=== PATIENT | male | born 1960 | race Caucasian/White ===

== ENCOUNTER 2019-05-20 12:50 | Day surgery (SDC) | payer OTHER ==
[~2019-05-20] VITALS: Ht 175.3 cm; Wt 126.3 kg
[~2019-05-20 12:50] MED LIST: Lipitor20 MG PO; Naltrexone HCl50 MG PO; VITAMIN D-32000 UNIT PO
--- NOTE | 2019-05-20 13:51 | NUR ---
05/20/19 1351 Yared,February 05G MATILDE BLOCK IN RIGHT HAND PATIENT TOLERATED WELL
--- NOTE | 2019-05-20 16:02 | NUR ---
05/20/19 1602 Nhung Zarate PT VOIDED PRIOR TO DC HOME
== END 2019-05-20 15:50 | disposition home or self-care (01) ==
LOC: ORSCSDS 12:50
PROVIDERS: Orthopaedic Surgery
PROC: 01N50ZZ Release Median Nerve, Open Approach (ICD-10-PCS; principal; 2019-05-20 14:00)
DX: G56.02 Carpal tunnel syndrome, left upper limb (principal); N18.4 Chronic kidney disease, stage 4 (severe); E66.01 Morbid (severe) obesity due to excess calories; Z68.41 Body mass index [BMI] 40.0-44.9, adult; Z79.899 Other long term (current) drug therapy
CPT/HCPCS: J0690; J1100; J2001; J2250; J2405; J2704; J3010; J7120

== ENCOUNTER 2019-09-06 08:05 | Day surgery (SDC) | payer OTHER ==
[~2019-09-06] VITALS: Ht 175.3 cm; Wt 131.4 kg
[~2019-09-06 08:05] MED LIST changes: +AMLO10 PO; +LOSARTAN-HCTZ1 EACH PO; +METF500 PO; +POTCIT10 PO
--- NOTE | 2019-09-06 08:45 | NUR ---
Ambulatory in Day Surgery.PT APPEARS ANXIOUS. SOB AND SWEATY WITH AMBULATION. PT DENIES FEELING SOB AT REST. LUNGS CLEAR. SATS>90% ON RA.HISTORY AND ALLERGIES REVIEWED. NPO STATUS CONFIRMED. Patient reports completing Chlorhexadine shower X2 prior to admission to hospital.Surgical site prepped with 2% Chlorhexidine cloth wipe.NOSYN AND PERIDEX SOLUTION DONE PER MD ORDERS.
--- NOTE | 2019-09-06 17:41 | NUR ---
SHIFT SUMMARY PT HAS DONE WELL TODAY. INITIALLY STRUGGLED WITH PAIN MANAGEMENT BUT NOW TOLERABLE. ABLE TO PREFORM WITH THERAPY. TOLERATING DIET. VOIDING.
[2019-09-07 05:21] LABS: BASOPHILS ABSOLUTE AUTO 0.02 K/mm3 (0.00-0.23); BASOPHILS PERCENT AUTO 0 % (0-2); EOSINOPHILS PERCENT AUTO 0 % (0-6); Hematocrit 36.9 % (37.0-53.0); Hemoglobin 12.4 g/dL (13.5-17.5); IMMATURE GRAN ABSOLUTE AUTO 0.13 K/mm3 (0.00-0.10); IMMATURE GRAN PERCENT AUTO 1 % (0-1); LYMPHOCYTES ABSOLUTE AUTO 0.58 K/mm3 (0.84-5.20); LYMPHOCYTES PERCENT AUTO 3 % (21-46); MONOCYTES ABSOLUTE AUTO 1.07 K/mm3 (0.16-1.47); MONOCYTES PERCENT AUTO 5 % (4-13); Mean Corpuscular HGB 32.8 pg (26.0-34.0); Mean Corpuscular HGB Conc 33.6 g/dL (31.5-36.5); Mean Corpuscular Volume 98 fL (80-100); Mean Platelet Volume 9.9 fL (9.1-12.4); NEUTROPHILS ABSOLUTE AUTO 18.61 K/mm3 (1.96-9.15); NEUTROPHILS PERCENT AUTO 91 % (41-73); Platelet Count 192 K/mm3 (150-400); RDW Coefficient Variation 12.7 % (11.7-14.2); RDW Standard Deviation 45.6 fL (35.1-46.3); Red Blood Cell Count 3.78 M/mm3 (4.30-5.90); White Blood Cell Count 20.41 K/mm3 (4.00-11.30)
[2019-09-07 05:41] LABS: Bun/Creatinine Ratio 18.2 (12.0-20.0); Calcium, Blood 8.8 mg/dL (8.5-10.1); Creatinine, Blood 1.65 mg/dL (0.60-1.20)
--- NOTE | 2019-09-07 05:58 | NUR ---
SHIFT SUMMARY: XIOMARA IS POD1 FOR A LEFT TOTAL KNEE. HE IS A&OX4. HE IS TOLERATING PO INTAKE WELL. BLOOD SUGAR CONTROL WAS DISCUSSED HIGHLIGHTING THE IMPORTANCE OF WELL CONTROLLED SUGAR AND PREVENTING INFECTION. IV SALINE LOCKED. HE AMBULATED TO THE BATHROOM AND DOWN THE HALLWAY TWICE WITH GAIT BELT, FWW AND 1 PERSON STANDBY ASSIST. HE HAS BEEN ON ROOM AIR. HE IS ABLE TO MAKE HIS NEEDS KNOWN. HE IS VOIDING WITHOUT DIFFICULTIES. HE REPORTS THAT HIS PAIN IS TOLERABLE WITH THE ORAL PAIN MEDICATIONS. HE IS LYING IN BED WITH HIS CALL LIGHT IN REACH.
[2019-09-07] MEDS ORDERED: ASPI81CH PO (07:58)
[2019-09-07] MEDS ORDERED: Percocet 5-3251 EACH PO (07:59)
[2019-09-07] MEDS ORDERED: CELE100 PO (08:00)
--- NOTE | 2019-09-07 10:02 | NUR ---
DR. CALERO IN TO SEE PT AT 0800 TODAY. PT SHOWERED AFTER BREAKFAST AND IS CURRENTLY WORKING WITH THERAPY.
--- NOTE | 2019-09-07 11:50 | NUR ---
DISCHARGE NOTE PATIENT D/C HOME FROM UNIT VIA WHEELCHAIR AT 1100 TODAY. DISCHARGE INSTRUCTIONS, EXTRA DRESSINGS, POLAR PAC, SCRIPTS AND PERSONAL BELONGINGS PROVIDED TO PT/SISTER. CLEARED THERAPY THIS MORNING AND TOLERATED ACTIVITY WELL. REPORTS PAIN AT ACCEPTABLE LEVEL W/ PO MEDICATIONS. TOLERATING REGULAR DIET. DECLINED ANY CONCERNS AT TIME OF D/C, ENCOURAGED TO CALL IF ANY SHOULD ARISE.
== END 2019-09-07 11:17 | disposition home or self-care (01) ==
LOC: ORSCMMR 08:05 → ORD 09:45 → ORSCMMR 09:45 → ORD 10:30 → SURS 12:08 → ENPENDDIS 09-07 08:08 → ORSCMMR 09-07 11:17 → SURS 09-07 11:17
PROVIDERS: Orthopaedic Surgery
PROC: 0SRD0JA Replacement of Left Knee Joint with Synthetic Substitute, Uncemented, Open Approach (ICD-10-PCS; principal; 2019-09-06 09:45)
DX: M17.12 Unilateral primary osteoarthritis, left knee (principal); E11.22 Type 2 diabetes mellitus with diabetic chronic kidney disease; I12.9 Hypertensive chronic kidney disease with stage 1 through stage 4 chronic kidney disease, or unspecified chronic kidney disease; N18.3 Chronic kidney disease, stage 3 (moderate); Z79.84 Long term (current) use of oral hypoglycemic drugs; E66.01 Morbid (severe) obesity due to excess calories; Z68.41 Body mass index [BMI] 40.0-44.9, adult; Z79.899 Other long term (current) drug therapy
CPT/HCPCS: 36415; 73560-LT; 80048; 82947; 85025; 86850; 86900; 86901; 88300; 90686; 97110; 97116; 97162; 97530; C1776; J0171; J0690; J0735; J1100; J1170; J1885; J2250; J2370; J2405; J2704; J2795; J3010; J7120

== ENCOUNTER 2022-04-10 06:13 | Day surgery (SDC) | payer OTHER ==
[~2022-04-10] VITALS: Ht 172.7 cm; Wt 140.8 kg
[~2022-04-10 06:13] MED LIST changes: +ASPI81CH PO; +ATOR20 PO; +CELE100 PO; +HYDCHL25 PO; +LOSARTAN POTAS100 M1 PO; +Percocet 5-3251 EACH PO; +TRAZ50 PO
== END 2022-04-10 08:55 | disposition home or self-care (01) ==
LOC: ORSCSDS 06:13 → ORD 08:00 → ORSCMMR 08:00 → ORSCSDS 08:55
PROVIDERS: Internal Medicine Gastroenterology
PROC: 0DB98ZX Excision of Duodenum, Via Natural or Artificial Opening Endoscopic, Diagnostic (ICD-10-PCS; principal; 2022-04-10 08:00)
PROC: 0DB48ZX Excision of Esophagogastric Junction, Via Natural or Artificial Opening Endoscopic, Diagnostic (ICD-10-PCS; principal; 2022-04-10 08:00)
PROC: 0DB68ZX Excision of Stomach, Via Natural or Artificial Opening Endoscopic, Diagnostic (ICD-10-PCS; principal; 2022-04-10 08:00)
DX: E66.01 Morbid (severe) obesity due to excess calories (principal); Z01.818 Encounter for other preprocedural examination; E78.00 Pure hypercholesterolemia, unspecified; Z68.42 Body mass index [BMI] 45.0-49.9, adult; I10 Essential (primary) hypertension; Z79.899 Other long term (current) drug therapy
CPT/HCPCS: 88305; 88342; A9270; J2704; J7120

== ENCOUNTER → 2022-12-03 | Outpatient (CLI) | payer OTHER ==
[2022-12-03 14:04] LABS: U Amphetamine Screen Not Detected; U Barbituate Screen Not Detected; U Benzodiazapine Screen Not Detected; U Buprenorphine Screen Not Detected; U Cannabinoids Screen Not Detected; U Cocaine Screen Not Detected; U Methadone Screen Not Detected; U Methamphetamine Screen Not Detected; U Opiates Screen Not Detected; U Oxycodone Screen Not Detected; U Phencyclidine Screen Not Detected; U Propoxyphene Screen Not Detected
[2022-12-09 16:10] LABS: COTININE <10.0 ng/mL (.); NICOTINE <10.0 ng/mL (.)
== END | disposition home or self-care (01) ==
LOC: LAB SHORT 11:35 → LAB 11:35
PROVIDERS: Physician Assistant
DX: Z01.812 Encounter for preprocedural laboratory examination (principal)
CPT/HCPCS: G0480

== ENCOUNTER → 2024-05-05 | Outpatient (CLI) | payer OTHER ==
[2024-05-05 15:00] LABS: Percent Saturation 47.5 % (20.0-50.0)
== END ==
LOC: LAB 13:24 → LAB SHORT 13:24
PROVIDERS: Internal Medicine Hematology & Oncology
DX: R79.89 Other specified abnormal findings of blood chemistry (principal)
CPT/HCPCS: 82728; 83540; 83550

== ENCOUNTER → 2024-06-02 | Outpatient (CLI) | payer OTHER ==
[2024-06-02 14:53] LABS: Percent Saturation 37.2 % (20.0-50.0)
== END | disposition home or self-care (01) ==
LOC: LAB SHORT 13:06 → LAB 13:06
PROVIDERS: Internal Medicine Hematology & Oncology
DX: R79.89 Other specified abnormal findings of blood chemistry (principal)
CPT/HCPCS: 82728; 83540; 83550

== ENCOUNTER 2024-06-17 11:56 | Day surgery (SDC) | payer OTHER ==
[~2024-06-17] VITALS: Ht 175.3 cm; Wt 121.4 kg
[~2024-06-17 11:56] MED LIST changes: +Lactated Ringer's 1,000 ML IV ONE
[2024-06-17] MEDS ORDERED: Lactated Ringer's 1,000 ML IV ONE (13:20)
[2024-06-17] MEDS ORDERED: propofoL 50 ML IV ONE (13:24)
[2024-06-17] MEDS ORDERED: Lidocaine HCl 4% 5 ML SDA ONE (13:25)
--- NOTE | 2024-06-17 14:04 | NUR ---
06/17/24 1404 Bonilla Davis LATE ENTRY: GAVE LIDOCAINE 4% ISOLATED TOPICALIZATION OF THE THROAT PER DR. OSWALD'S ORDERS.
[2024-06-17 14:16] VITALS: BP 133/84
== END 2024-06-17 14:22 | disposition home or self-care (01) ==
LOC: ORSCSDS 11:56
PROVIDERS: Internal Medicine Gastroenterology
PROC: 0DJ08ZZ Inspection of Upper Intestinal Tract, Via Natural or Artificial Opening Endoscopic (ICD-10-PCS; principal; 2024-06-17 13:15)
DX: R10.13 Epigastric pain (principal); Z98.84 Bariatric surgery status; E78.5 Hyperlipidemia, unspecified; I12.9 Hypertensive chronic kidney disease with stage 1 through stage 4 chronic kidney disease, or unspecified chronic kidney disease; N18.9 Chronic kidney disease, unspecified; G47.33 Obstructive sleep apnea (adult) (pediatric); Z79.899 Other long term (current) drug therapy
CPT/HCPCS: J2001; J2704; J7120

== ENCOUNTER → 2024-09-21 | Outpatient (CLI) | payer OTHER ==
[~2024-09-21] MED LIST changes: +ACET500 PO; +KLOR-CON 1010 ME9 PO; -Lactated Ringer's 1,000 ML IV ONE; +VITAMIN D350 MC3 PO
[2024-09-22 14:28] LABS: Percent Saturation 51.6 % (20.0-50.0)
== END | disposition home or self-care (01) ==
LOC: LAB 12:52 → LAB SHORT 12:52
PROVIDERS: Internal Medicine Hematology & Oncology
DX: R79.89 Other specified abnormal findings of blood chemistry (principal)
CPT/HCPCS: 82728; 83540; 83550

== ENCOUNTER 2025-01-05 18:16 | Inpatient (IN) | payer OTHER ==
[~2025-01-05] VITALS: Ht 172.7 cm; Wt 123.4 kg
[2025-01-05] MEDS ORDERED: Ondansetron HCl 2 MG / ML 2ML Vial IV ONE (19:05)
[2025-01-05] MEDS ORDERED: NS 1,000 ML IV SCH ×2 (19:05→22:15)
[2025-01-05] MEDS ORDERED: Morphine Sulfate 4 MG/1 ML Injection IV ONE ×2 (19:20→21:10)
[2025-01-05 21:11] LABS: Source, Urine Clean Catch
[2025-01-05 21:23] LABS: BASOPHILS ABSOLUTE AUTO 0.03 K/mm3 (0.00-0.23); BASOPHILS PERCENT AUTO 0 % (0-2); EOSINOPHILS ABSOLUTE AUTO 0.03 K/mm3 (0.00-0.68); EOSINOPHILS PERCENT AUTO 0 % (0-6); Hemoglobin 14.8 g/dL (13.5-17.5); IMMATURE GRAN ABSOLUTE AUTO 0.08 K/mm3 (0.00-0.10); IMMATURE GRAN PERCENT AUTO 1 % (0-1); LYMPHOCYTES PERCENT AUTO 9 % (21-46); MONOCYTES ABSOLUTE AUTO 0.51 K/mm3 (0.16-1.47); MONOCYTES PERCENT AUTO 5 % (4-13); Mean Corpuscular HGB 33.9 pg (26.0-34.0); Mean Corpuscular Volume 92 fL (80-100); Mean Platelet Volume 12.3 fL (9.1-12.4); NEUTROPHILS ABSOLUTE AUTO 7.92 K/mm3 (1.96-9.15); NEUTROPHILS PERCENT AUTO 85 % (41-73); NRBC ABSOLUTE 0.03 K/mm3 (0.00-0.02); NRBC Auto 0.3 /100 WBC (0.0-0.2); RDW Coefficient Variation 14.1 % (11.7-14.2); RDW Standard Deviation 47.4 fL (35.1-46.3); Red Blood Cell Count 4.36 M/mm3 (4.30-5.90)
[2025-01-05 21:28] LABS: Appearance, Urine Clear (Clear); Bilirubin, Urine Neg (Neg); Blood, Urine 1+ (Neg); Color, Urine Yellow (P-Yellow); Glucose Qualitative, Urine Neg (Neg); Ketones, Urine Neg (Neg); Leukocyte Esterase, Urine Neg (Neg); Nitrite, Urine Neg (Neg); Protein, Urine 2+ (Neg); Specific Gravity, Urine 1.015 (1.003-1.022); Urobilinogen, Urine NORM (Normal)
[2025-01-05 21:31] LABS: Platelet Count 90 K/mm3 (150-400); White Blood Cell Count 9.52 K/mm3 (4.00-11.30)
[2025-01-05 22:15] LABS: Bacteria Few /hpf; Hyaline Casts 0-2 /lpf (0-2); Red Blood Cells, Urine 0-2 /hpf (0-2); Squamous Epithelial Cells Few /hpf (Few); White Blood Cells, Urine 0-2 /hpf (0-5)
[2025-01-05] MEDS ORDERED: LORazepam 2 MG/ML 1ML Injection IV PRN (22:15)
[2025-01-05] MEDS ORDERED: ChlordiazePOXIDE 25 MG Cap PO PRN (22:15)
[2025-01-05] MEDS ORDERED: Ondansetron HCl 2 MG / ML 2ML Vial IV PRN (22:15)
[2025-01-05] MEDS ORDERED: FLU VACC TS2024-25(6MOS UP)/PF 45 MCG/0.5 ML SYRINGE IM ONE (22:20)
[2025-01-05] MEDS ORDERED: FentaNYL Citrate 50 MCG/ML 2 ML Injection IV PRN (22:20)
[2025-01-05] MEDS ORDERED: Thiamine HCl 100 MG in NS 50 ML IV SCH (22:38)
[2025-01-05] MEDS ORDERED: Enoxaparin 40 MG/0.4 ML SYR SC SCH (23:00)
[2025-01-06] VITALS (30 sets, daily range): BP systolic 103–153; BP diastolic 54–98
[2025-01-06 02:22] LABS: Anion Gap Unable to Calculate mmol/L (3-11)
[2025-01-06 02:23] LABS: Sodium, Blood 135 mmol/L (136-145)
[2025-01-06 02:24] LABS: Chloride, Blood 105 mmol/L (98-108)
[2025-01-06 02:25] LABS: Blood Urea Nitrogen 20 mg/dL (8-24); CO2, Blood 25 mmol/L (21-32); Glucose, Blood 95 mg/dL (70-99)
[2025-01-06 02:26] LABS: Bun/Creatinine Ratio 15.5 (12.0-20.0); Creatinine, Blood 1.29 mg/dL (0.60-1.20); Glomerular Filtration Rate 62 (60-)
[2025-01-06 02:27] LABS: Albumin, Blood 2.1 g/dL (3.4-5.0); Total Protein, Blood 6.5 g/dL (6.4-8.2)
[2025-01-06 02:28] LABS: Albumin/Globulin Ratio 0.5 (0.8-1.8); Alk Phos 139 U/L (50-136); Bilirubin, Total 0.6 mg/dL (0.1-1.0); Globulin, Blood 4.4 g/dL (2.2-4.0)
[2025-01-06 02:29] LABS: Alanine Aminotransfer (ALT/SGP 145 U/L (12-78); Aspartate Aminotrans (AST/SGOT 297 U/L (12-37)
[2025-01-06] MEDS ORDERED: Gemfibrozil 600 MG Tab PO SCH (03:00)
[2025-01-06] MEDS ORDERED: Fenofibrate, Micronized 134 MG Capsule PO SCH (03:00)
[2025-01-06] MEDS ORDERED: FentaNYL Citrate 50 MCG/ML 2 ML Injection IV PRN ×2 (03:30→05:25)
[2025-01-06 06:31] LABS: BASOPHILS ABSOLUTE AUTO 0.03 K/mm3 (0.00-0.23); BASOPHILS PERCENT AUTO 0 % (0-2); EOSINOPHILS ABSOLUTE AUTO 0.01 K/mm3 (0.00-0.68); EOSINOPHILS PERCENT AUTO 0 % (0-6); Hemoglobin 14.9 g/dL (13.5-17.5); IMMATURE GRAN ABSOLUTE AUTO 0.12 K/mm3 (0.00-0.10); IMMATURE GRAN PERCENT AUTO 1 % (0-1); LYMPHOCYTES ABSOLUTE AUTO 0.87 K/mm3 (0.84-5.20); LYMPHOCYTES PERCENT AUTO 6 % (21-46); MONOCYTES ABSOLUTE AUTO 0.67 K/mm3 (0.16-1.47); MONOCYTES PERCENT AUTO 5 % (4-13); Mean Corpuscular HGB 32.7 pg (26.0-34.0); Mean Corpuscular HGB Conc 35.5 g/dL (31.5-36.5); Mean Corpuscular Volume 92 fL (80-100); NEUTROPHILS ABSOLUTE AUTO 11.99 K/mm3 (1.96-9.15); NEUTROPHILS PERCENT AUTO 88 % (41-73); RDW Coefficient Variation 14.5 % (11.7-14.2); RDW Standard Deviation 48.9 fL (35.1-46.3); Red Blood Cell Count 4.55 M/mm3 (4.30-5.90)
[2025-01-06 06:33] LABS: Mean Platelet Volume 11.4 fL (9.1-12.4); Platelet Count 77 K/mm3 (150-400)
[2025-01-06 06:34] LABS: White Blood Cell Count 12.83 K/mm3 (4.00-11.30)
[2025-01-06 07:17] LABS: Alk Phos 140 U/L (50-136); Anion Gap 16 mmol/L (3-11); Bilirubin, Total 2.1 mg/dL (0.1-1.0); CO2, Blood 22 mmol/L (21-32); Chloride, Blood 101 mmol/L (98-108); Creatinine, Blood 0.62 mg/dL (0.60-1.20); Glomerular Filtration Rate 107 (60-); Glucose, Blood 157 mg/dL (70-99); LDL/HDL RATIO Unable to Calculate; Low Density Lipoprotein Chol Unable to Calculate mg/dL (0-110); Potassium, Blood 5.7 mmol/L (3.5-5.5); Sodium, Blood 133 mmol/L (136-145); Very Low Density Lipoprot Chol Unable to Calculate mg/dL (6-32)
[2025-01-06 07:19] LABS: Albumin/Globulin Ratio Unable to Calculate (0.8-1.8); Bun/Creatinine Ratio Unable to Calculate (12.0-20.0); Globulin, Blood Unable to Calculate g/dL (2.2-4.0)
[2025-01-06 07:21] LABS: CHOL/HDL RATIO Unable to Calculate; Cholesterol 286 mg/dL (50-200); Triglycerides 3145 mg/dL (30-160)
[2025-01-06] MEDS ORDERED: NS 1,000 ML IV SCH ×2 (08:10→13:35)
[2025-01-06] MEDS ORDERED: Dextrose 5% 1,000 ML IV SCH ×2 (09:00→11:03)
[2025-01-06] MEDS ORDERED: Insulin Human Regular 100 UNIT in NS 100 ML IV SCH (09:10)
--- NOTE | 2025-01-06 10:32 | NUR ---
PT HAD NAUSEA AND C/O ABD PAIN, SEE EMAR FOR PRN MEDICATIONS GIVEN AND FREQUENCY. PT WAS TRANSFERED TO ICU FOR HYPOGLYCEMIC PROTOCOL. REPORT GIVEN. PT HAS NO QUESTIONS AT THAT TIME
[2025-01-06] MEDS ORDERED: METOPROLOL SUCC25 MG PO (11:37)
--- NOTE | 2025-01-06 11:43 | NUR ---
ASSUMED CARE PT TRANSFERRED TO ICU 1, ESCORTED BY MED FLOOR RN. ALERT AND ORIENTED X 4. PT AMBULATES TO ICU BED c SBA. REPORTS PAIN AT 10/10 IN HIS ABDOMEN. CONTINUOUS CARDIAC MONITORING IN PLACE SHOWS SR, BP STABLE. ON RA c O2 SATURATION > 92%. PIV TO LAC SALINE LOCKED. SEE SHIFT ASSESSMENT FOR FULL DETAILS.
[2025-01-06] MEDS ORDERED: Ondansetron HCl 2 MG / ML 2ML Vial IV PRN (12:05)
[2025-01-06] MEDS ORDERED: HYDROmorphone HCl/Pf 1MG SYR IV PRN (12:05)
[2025-01-06] MEDS ORDERED: Metoprolol Succinate 25 MG TABCR PO SCH (13:00)
[2025-01-06] MEDS ORDERED: HYDROmorphone HCl/Pf 1MG SYR IV ONE (14:20)
[2025-01-06 15:02] LABS: Albumin, Blood 2.2 g/dL (3.4-5.0); Albumin/Globulin Ratio 0.6 (0.8-1.8); Bilirubin, Total 2.7 mg/dL (0.1-1.0); Bun/Creatinine Ratio 12.3 (12.0-20.0); Calcium, Blood 6.8 mg/dL (8.5-10.1); Creatinine, Blood 1.06 mg/dL (0.60-1.20); Globulin, Blood 3.6 g/dL (2.2-4.0); Potassium, Blood 3.3 mmol/L (3.5-5.5); Total Protein, Blood 5.8 g/dL (6.4-8.2)
[2025-01-06] MEDS ORDERED: Potassium Chl 20MEQ/Water100ML 100 ML IV SCH (15:45)
[2025-01-06] MEDS ORDERED: Potassium Chloride 20 MEQ TabCR PO ONE (16:00)
--- NOTE | 2025-01-06 17:06 | NUR ---
SHIFT SUMMARY PT REMAINED ALERT AND ORIENTED X 4 T/O ENTIRETY OF SHIFT. ABLE TO FOLLOW COMMANDS, MAKE PURPOSEFUL MOVEMENTS, AND MAKE NEEDS KNOWN. AFEBRILE. REPORTED PAIN IN HIS ABDOMEN. MEDICATED PER EMAR c GOOD BENEFIT. CIWA SCORE OF 4 THIS SHIFT. CONTINUOUS CARDIAC MONITORING IN PLACE SHOWS SR-ST c HR IN 80'S-100'S, OCCASIONALLY UP TO 140'S. HOME METOPROLOL RESUMED THIS SHIFT. BP STABLE c MAP > 65. ON 4 LPM O2 VIA NC c SATURATION IN 90'S. NO BM THIS SHIFT. NPO. ONE EPISODE OF EMESIS THIS SHIFT. MEDICATED PER EMAR c GOOD BENEFIT. TOLERATING PO MEDS WELL. UTILIZES BEDSIDE URINAL. PG TO WALDEMAR INFUSING INSULIN AT 2.5 U/HR, D5 AT 175mL/HR, AND KCL REPLACEMENT INFUSION. PIV TO LAC SALINE LOCKED. REPEAT LABS ORDERED FOR 1800. WILL CONTINUE TO MONITOR AND REPORT TO ONCOMING RN.
[2025-01-06 18:39] LABS: Alanine Aminotransfer (ALT/SGP 120 U/L (12-78); Albumin, Blood 2.1 g/dL (3.4-5.0); Albumin/Globulin Ratio 0.6 (0.8-1.8); Alk Phos 117 U/L (50-136); Anion Gap 12 mmol/L (3-11); Bilirubin, Total 2.8 mg/dL (0.1-1.0); Blood Urea Nitrogen 13 mg/dL (8-24); Bun/Creatinine Ratio 12.9 (12.0-20.0); CO2, Blood 23 mmol/L (21-32); Calcium, Blood 6.2 mg/dL (8.5-10.1); Chloride, Blood 106 mmol/L (98-108); Creatinine, Blood 1.01 mg/dL (0.60-1.20); Globulin, Blood 3.7 g/dL (2.2-4.0); Glomerular Filtration Rate 84 (60-); Glucose, Blood 119 mg/dL (70-99); Sodium, Blood 137 mmol/L (136-145); Total Protein, Blood 5.8 g/dL (6.4-8.2)
[2025-01-06 18:41] LABS: Aspartate Aminotrans (AST/SGOT 162 U/L (12-37); Potassium, Blood 3.6 mmol/L (3.5-5.5); Triglycerides 1558 mg/dL (30-160)
--- NOTE | 2025-01-06 18:45 | NUR ---
PM LABS CALL TO DR. MERA REGARDING LABS. PER DR. MERA, PT TO REMAIN ON INSULIN DRIP UNTIL TRIGLYCERIDES ARE BELOW 500. NEW REPEAT LABS ORDERED.
[2025-01-06 22:24] LABS: Albumin, Blood 2.1 g/dL (3.4-5.0); Albumin/Globulin Ratio 0.5 (0.8-1.8); Bilirubin, Total 3.2 mg/dL (0.1-1.0); Bun/Creatinine Ratio 13.5 (12.0-20.0); Calcium, Blood 6.4 mg/dL (8.5-10.1); Creatinine, Blood 1.04 mg/dL (0.60-1.20); Globulin, Blood 3.9 g/dL (2.2-4.0); Potassium, Blood 4.2 mmol/L (3.5-5.5)
[2025-01-07] VITALS (19 sets, daily range): BP systolic 101–148; BP diastolic 50–101
[2025-01-07 02:20] LABS: BASOPHILS ABSOLUTE AUTO 0.02 K/mm3 (0.00-0.23); BASOPHILS PERCENT AUTO 0 % (0-2); EOSINOPHILS ABSOLUTE AUTO 0.02 K/mm3 (0.00-0.68); EOSINOPHILS PERCENT AUTO 0 % (0-6); Hematocrit 36.7 % (37.0-53.0); Hemoglobin 12.9 g/dL (13.5-17.5); IMMATURE GRAN ABSOLUTE AUTO 0.09 K/mm3 (0.00-0.10); IMMATURE GRAN PERCENT AUTO 1 % (0-1); LYMPHOCYTES ABSOLUTE AUTO 0.69 K/mm3 (0.84-5.20); LYMPHOCYTES PERCENT AUTO 4 % (21-46); MONOCYTES ABSOLUTE AUTO 0.66 K/mm3 (0.16-1.47); MONOCYTES PERCENT AUTO 4 % (4-13); Mean Corpuscular HGB 33.9 pg (26.0-34.0); Mean Corpuscular HGB Conc 35.1 g/dL (31.5-36.5); Mean Corpuscular Volume 96 fL (80-100); Mean Platelet Volume 10.6 fL (9.1-12.4); NEUTROPHILS ABSOLUTE AUTO 14.99 K/mm3 (1.96-9.15); NEUTROPHILS PERCENT AUTO 91 % (41-73); RDW Coefficient Variation 14.4 % (11.7-14.2); Red Blood Cell Count 3.81 M/mm3 (4.30-5.90); White Blood Cell Count 16.47 K/mm3 (4.00-11.30)
[2025-01-07 02:25] LABS: Platelet Count 44 K/mm3 (150-400)
[2025-01-07 02:53] LABS: Alanine Aminotransfer (ALT/SGP 86 U/L (12-78); Albumin, Blood 2.1 g/dL (3.4-5.0); Albumin/Globulin Ratio 0.6 (0.8-1.8); Alk Phos 109 U/L (50-136); Anion Gap 9 mmol/L (3-11); Aspartate Aminotrans (AST/SGOT 125 U/L (12-37); Bilirubin, Total 2.8 mg/dL (0.1-1.0); Blood Urea Nitrogen 12 mg/dL (8-24); Bun/Creatinine Ratio 11.5 (12.0-20.0); CO2, Blood 23 mmol/L (21-32); Calcium, Blood 6.2 mg/dL (8.5-10.1); Chloride, Blood 109 mmol/L (98-108); Creatinine, Blood 1.04 mg/dL (0.60-1.20); Globulin, Blood 3.4 g/dL (2.2-4.0); Glomerular Filtration Rate 81 (60-); Glucose, Blood 114 mg/dL (70-99); Magnesium, Blood 1.1 mg/dL (1.6-2.4); Phosphorus, Blood 0.8 mg/dL (2.5-4.9); Potassium, Blood 3.3 mmol/L (3.5-5.5); Sodium, Blood 138 mmol/L (136-145); Total Protein, Blood 5.5 g/dL (6.4-8.2); Triglycerides 500 mg/dL (30-160)
[2025-01-07] MEDS ORDERED: Potassium Phosphate Dibasic 30 MM in Dextrose 5% 500 ML IV ONE (03:05)
[2025-01-07] MEDS ORDERED: CALCIUM GLUC IN NACL, ISO-OSM 50 ML IV ONE (03:05)
[2025-01-07] MEDS ORDERED: Magnesium Sulf 2 GM/Water 50ML 50 ML IV ONE (03:45)
--- NOTE | 2025-01-07 06:25 | NUR ---
SHIFT SUMMARY PATIENT SLEPT OFF AND ON THROUGH SHIFT. USES CALL LIGHT TO MAKE NEEDS KNOW. A&O X4 DOES REPEAT QUESTIONS. SBP 110-120'S AND HR IN THE 80-90'S. ON 4L OF OXYGEN VIA NC. PATIENT IS TOLERATING ICE CHIPS BUT NOT DRINKING WATER CAUSES NAUSEA. AGVE PAIN MEDS AND NAUSEA MED PER EMAR. INSULIN DRIP RUNNING @2, D5 RUNNING @ 175MLS, AND K PHOS RUNNING @100MLS. PATIENT HAS RIGHT POWERGLIDE IN WALDEMAR AND LEFT 20G AC. PATIENT USES URINAL AT BEDSIDE AND USES BEDSIDE COMMODE AND NO BM ON SHIFT. PATIENT PASSING A LOT OF GAS AND STATES THAT IS NORMAL FOR HIM. CALL LIGHT WITHIN REACH.
[2025-01-07 06:30] LABS: Anion Gap 6 mmol/L (3-11); Blood Urea Nitrogen 12 mg/dL (8-24); Bun/Creatinine Ratio 11.4 (12.0-20.0); CO2, Blood 27 mmol/L (21-32); Calcium, Blood 6.3 mg/dL (8.5-10.1); Chloride, Blood 104 mmol/L (98-108); Creatinine, Blood 1.05 mg/dL (0.60-1.20); Glomerular Filtration Rate 80 (60-); Glucose, Blood 136 mg/dL (70-99); Potassium, Blood 3.2 mmol/L (3.5-5.5); Sodium, Blood 134 mmol/L (136-145); Triglycerides 366 mg/dL (30-160)
--- NOTE | 2025-01-07 07:00 | NUR ---
ASSUME CARE: I have assumed care of this patient. He is alert and oriented at this time.
[2025-01-07] MEDS ORDERED: NS 1,000 ML IV SCH (08:10)
[2025-01-07] MEDS ORDERED: Potassium Chloride 40 MEQ in NS 250 ML IV ONE (09:00)
[2025-01-07 12:41] LABS: Bun/Creatinine Ratio 10.7 (12.0-20.0); Calcium, Blood 6.5 mg/dL (8.5-10.1); Creatinine, Blood 1.12 mg/dL (0.60-1.20); Potassium, Blood 3.3 mmol/L (3.5-5.5)
[2025-01-07] MEDS ORDERED: Magnesium Sulf 2 GM/Water 50ML 50 ML IV STA (13:55)
[2025-01-07] MEDS ORDERED: Potassium Chl 20MEQ/Water100ML 100 ML IV SCH (14:00)
--- NOTE | 2025-01-07 15:09 | NUR ---
TRANSFER: Pt transferred from ICU 1 to Medical 326 via wheelchair by OBSTETRICAL TECH and RN. Report was given to medical floor Esmer MUSTAFA. Pt alert and oriented upon transfer. He transferred from bed to chair with minimal assistance.
[2025-01-07 17:37] LABS: Magnesium, Blood 1.6 mg/dL (1.6-2.4); Phosphorus, Blood 1.1 mg/dL (2.5-4.9)
--- NOTE | 2025-01-07 17:50 | NUR ---
SHIFT SUMMARY PT TRANSFERED FROM ICU 1 TO ROOM 326 THIS SHIFT. PT NOTED TO BE A&O X4 AND CALLS APPROPRIATE. PT NOTED TO BE IND IN ROOM. PT NOTED TO BE RECEIVEING SUPPLEMENTAL POTASSIUM AND MAG ON ARRIVAL. PT HAS BEEN MEDICATED FOR PAIN X1 THIS SHIFT SINCE ARRIVING. PT NOTED TO CONT TO REMAIN NPO AND GLUCOSE BEING CHECKED Q6HRS.
[2025-01-07] MEDS ORDERED: Potassium Phosphate Dibasic 20 MM in NS 500 ML IV STA (19:04)
[2025-01-08 00:06] VITALS: BP 117/68
[2025-01-08 00:24] LABS: Bun/Creatinine Ratio 11.3 (12.0-20.0); Calcium, Blood 6.2 mg/dL (8.5-10.1); Creatinine, Blood 1.06 mg/dL (0.60-1.20); Phosphorus, Blood 1.7 mg/dL (2.5-4.9); Potassium, Blood 3.8 mmol/L (3.5-5.5)
[2025-01-08 03:18] VITALS: BP 139/87
[2025-01-08] MEDS ORDERED: Metoprolol Tartrate 1 MG/ML 5 ML VIAL IV ONE (04:55)
[2025-01-08 05:37] LABS: BASOPHILS ABSOLUTE AUTO 0.02 K/mm3 (0.00-0.23); BASOPHILS PERCENT AUTO 0 % (0-2); EOSINOPHILS ABSOLUTE AUTO 0.07 K/mm3 (0.00-0.68); EOSINOPHILS PERCENT AUTO 1 % (0-6); Hematocrit 33.4 % (37.0-53.0); Hemoglobin 11.5 g/dL (13.5-17.5); IMMATURE GRAN ABSOLUTE AUTO 0.05 K/mm3 (0.00-0.10); IMMATURE GRAN PERCENT AUTO 1 % (0-1); LYMPHOCYTES ABSOLUTE AUTO 0.44 K/mm3 (0.84-5.20); LYMPHOCYTES PERCENT AUTO 4 % (21-46); MONOCYTES ABSOLUTE AUTO 0.52 K/mm3 (0.16-1.47); MONOCYTES PERCENT AUTO 5 % (4-13); Mean Corpuscular HGB 33.8 pg (26.0-34.0); Mean Corpuscular HGB Conc 34.4 g/dL (31.5-36.5); Mean Corpuscular Volume 98 fL (80-100); Mean Platelet Volume 11.3 fL (9.1-12.4); NEUTROPHILS ABSOLUTE AUTO 9.91 K/mm3 (1.96-9.15); NEUTROPHILS PERCENT AUTO 90 % (41-73); RDW Coefficient Variation 15.6 % (11.7-14.2); RDW Standard Deviation 56.2 fL (35.1-46.3); White Blood Cell Count 11.01 K/mm3 (4.00-11.30)
[2025-01-08 05:39] LABS: Platelet Count 30 K/mm3 (150-400)
[2025-01-08 06:05] LABS: Albumin, Blood 2.1 g/dL (3.4-5.0); Albumin/Globulin Ratio 0.6 (0.8-1.8); Bilirubin, Total 3.3 mg/dL (0.1-1.0); Bun/Creatinine Ratio 10.9 (12.0-20.0); Calcium, Blood 6.1 mg/dL (8.5-10.1); Creatinine, Blood 1.01 mg/dL (0.60-1.20); Globulin, Blood 3.7 g/dL (2.2-4.0); Potassium, Blood 3.6 mmol/L (3.5-5.5); Total Protein, Blood 5.8 g/dL (6.4-8.2)
[2025-01-08 06:20] VITALS: BP 136/84
[2025-01-08] MEDS ORDERED: Diltiazem HCl 5 MG / ML 5ML Vial IV ONE (06:30)
--- NOTE | 2025-01-08 07:28 | NUR ---
SHIFT SUMMARY PT A&OX4. ANXIOUS AMD RESTLESS DURING THE NIGHT. PT STATED HE WANTED TO GO HOME TO TAKE CARE OF A FEW THINGS AND COME BACK. PT ALSO VERY CONCERNED ABOUT GETTING CLEAN CLOTHING FROM HOME. PT REPEATEDLY ASKED ABOUT WHEN HE WOULD GO HOME, WHEN THE DR WOULD BE IN, AND QUESTIONS ABOUT CAUSE OF ELECTROLYTE IMBALNCE AND WHAT MEDICATION WHERE GIVEN TO HIM ON MEDICAL AND ICU FLOOR. THIS NURSE ATTEMPTED TO ANSWER QUESTIONS ABLE. ATIVAN GIVEN PER EMAR. PT DECLINED LIBRIUM D/T CONCERN ABOUT IT MAKING HIM TOO SLEEPING. Q4 CIWA'S RANGED FROM 1-7. PT'S HR CONVERTED TO A-FIB WITH HR UP TO 150's. DR CALLED AND ORDER GIVEN FOR LOPRESSOR. HR CONTINUED TO REMAIN ELEVATED UP TO THE 160'S. ORDER GIVEN FOR CARDIZEM BUT PT CONVERTED BACK TO SR IN THE 110'S SO MEDICATION NOT GIVEN. IV K PHOS GIVEN PER EMAR. NS INFUSING @ 150ml/hr. PT TOLERATING CL LIQUID DIET. BED IN LOWEST POSITION AND CALL LIGHT IN REACH. REPORT GIVEN TO ONCOMING NURSE.
[2025-01-08 08:11] VITALS: BP 126/80
[2025-01-08] MEDS ORDERED: Potassium Phos/Sodium Phos 250 MG PACK PO ONE (09:50)
[2025-01-08 15:23] VITALS: BP 128/94
[2025-01-08] MEDS ORDERED: NS 1,000 ML IV SCH (15:35)
[2025-01-08] MEDS ORDERED: Melatonin 5 MG Tablet PO PRN (17:30)
--- NOTE | 2025-01-08 17:46 | NUR ---
SHIFT SUMMARY PT CONT LEVEL OF CARE. PT NOTED TO BE VERY AGITATED THIS SHIFT. PT WAS OFFERED LIBRUM AND ATIVAN BUT REFUSED. PHYSICIAN ALSO DISCUSSED USE OF CPAP BUT PT CONT TO REFUSE TO USE. PT NOTED TO ADVANCED TO A FULL LIQUID DIET THIS SHIFT AND TOLERATED WELL FOR SUPPER. PT HAS DENIED PAIN THIS SHIFT. PT DID VOICE CONCERN OF NOT SLEEPING WELL PHYSICAIN NOTIFIED AND ORDER FOR MELATONIN RECEIVED.
[2025-01-08 19:31] VITALS: BP 125/68
[2025-01-09] VITALS (7 sets, daily range): BP systolic 110–150; BP diastolic 69–99
--- NOTE | 2025-01-09 04:19 | NUR ---
SLAB INSPECTOR SUMMARY BP ELEVATED, OTHERWISE VSS. ALERT AND ORIENTED, INITALLY WAS ANXIOUS SHIFT STARTED, BUT WITH STAFF INTERRACTIONS AND VERBAL SUPPORT TO PT, PT BECAME LESS ANXIOUS AND PLEASANT, EVEN THANKING STAFF FOR THEIR ASSISTANCE. UP WITH OBSERVATION AND OCCASIONALLY WALKER TO BATHROOM. WAS INCONT OF BM AND URINE X 1. IVF OF NS AND IV ANTIBIOTICS INFUSING ORDERED. REQUESTED AND RECEIVED DILAUDID FOR PAIN. MED EFFECTIVE. AWAKENED ABOUT EVERY 4 HRS FOR VS HE IS ON TELE. SINUS IN THE LOW HUNDREDS. HAS BEEN RESTING QUIETLY OTHERWISE. O2 PER MASK. HOB ELEVATED. CALL LIGHT IN REACH, RAILS UP X 2 AND BED IN LOW POSITION FOR SAFETY. CURRENTLY RESTING QUIETLY. CIWAS Q 4 HRS - 0 TO 2 NOTED. WILL CONTINUE TO MONITOR
[2025-01-09 05:53] LABS: BASOPHILS ABSOLUTE AUTO 0.03 K/mm3 (0.00-0.23); BASOPHILS PERCENT AUTO 0 % (0-2); EOSINOPHILS PERCENT AUTO 1 % (0-6); Hematocrit 31.3 % (37.0-53.0); Hemoglobin 10.5 g/dL (13.5-17.5); IMMATURE GRAN ABSOLUTE AUTO 0.05 K/mm3 (0.00-0.10); IMMATURE GRAN PERCENT AUTO 1 % (0-1); LYMPHOCYTES ABSOLUTE AUTO 0.65 K/mm3 (0.84-5.20); LYMPHOCYTES PERCENT AUTO 6 % (21-46); MONOCYTES ABSOLUTE AUTO 0.65 K/mm3 (0.16-1.47); MONOCYTES PERCENT AUTO 6 % (4-13); Mean Corpuscular HGB 33.3 pg (26.0-34.0); Mean Corpuscular HGB Conc 33.5 g/dL (31.5-36.5); Mean Corpuscular Volume 99 fL (80-100); Mean Platelet Volume 11.8 fL (9.1-12.4); NEUTROPHILS PERCENT AUTO 86 % (41-73); RDW Coefficient Variation 15.9 % (11.7-14.2); RDW Standard Deviation 57.8 fL (35.1-46.3); Red Blood Cell Count 3.15 M/mm3 (4.30-5.90); White Blood Cell Count 10.48 K/mm3 (4.00-11.30)
[2025-01-09 06:12] LABS: Platelet Count 38 K/mm3 (150-400)
[2025-01-09 06:27] LABS: Albumin, Blood 1.8 g/dL (3.4-5.0); Albumin/Globulin Ratio 0.5 (0.8-1.8); Bilirubin, Total 3.4 mg/dL (0.1-1.0); Bun/Creatinine Ratio 7.7 (12.0-20.0); Calcium, Blood 6.3 mg/dL (8.5-10.1); Creatinine, Blood 0.9 mg/dL (0.60-1.20); Globulin, Blood 3.9 g/dL (2.2-4.0); Phosphorus, Blood 0.7 mg/dL (2.5-4.9); Potassium, Blood 3.2 mmol/L (3.5-5.5); Total Protein, Blood 5.7 g/dL (6.4-8.2)
[2025-01-09] MEDS ORDERED: Potassium Phosphate Dibasic 30 MM IV ONE (06:40)
[2025-01-09] MEDS ORDERED: Potassium Phosphate Dibasic 30 MM in Dextrose 5% 500 ML IV STA (06:47)
[2025-01-09] MEDS ORDERED: TPN Consult Notification XX ONE (11:40)
[2025-01-09] MEDS ORDERED: Parenteral Electolytes 40 ML,POTASSIUM PHOS,M-BASIC-D-BASIC 30 MMOL,Multivitamins 10 ML... IV SCH (17:00)
--- NOTE | 2025-01-09 17:37 | NUR ---
SHIFT SUMMARY PT CONT LEVEL OF CARE. PT STARTED ON PPN THIS SHIFT. PT CONT WITH A FULL LIQUID DIET. PT HAS VOICED C/O PAIN TO RLQ AND HAS BEEN MEDICATED X1 THIS SHIFT.
[2025-01-10] MEDS ORDERED: Metoprolol Tartrate 1 MG/ML 5 ML VIAL IV ONE (00:40)
--- NOTE | 2025-01-10 00:54 | NUR ---
GOT A CALL FROM [facility] HR WAS FROM 120-[address] CORONEL AND GOT A ORDER FOR A ONE TIME DOSE OF METOPROLOL 5MG IV. DOSE WAS GIVEN. INFORMED ROHIT BRAY AND WILL MONITOR
--- NOTE | 2025-01-10 03:21 | NUR ---
SHOEMAKER APPRENTICE SUMMMARY ON CONTINUOUS PULSE OX AND MED TELE. HR ESCALATED DURING SHIFT AND ONE TIME ORDER OF IV LOPRESSOR ORDERED AND ADMINISTERED. MED EFFECTIVE, HR DOWN INTO THE 90'S AT THIS TIME. UP TO BEDSIDE COMMODE INTERMITTENTLY TO VOID AND HAVE BM. PPN INFUSING AT 104 ML/HR FOR NUTRITION. ALERT AND ORIENTED, SOMEWHAT ANXIOUS, BUT COOPERATIVE. RECEIVED DILAUDID IV FOR PAIN X 2 OF THIS WRITING FOR PAIN. CIWAS 0-2 THROUGH OUT SHIFT. CALL LIGHT IN REACH, RAILS UP X 2 AND BED IN LOW POSITION FOR SAFETY. ABLE TO REPOSITION SELF IN BED WITHOUT ASSIST. WILL CONTINUE TO MONITOR
[2025-01-10 03:30] VITALS: BP 138/86
[2025-01-10 05:34] LABS: Hematocrit 31.5 % (37.0-53.0); Hemoglobin 10.5 g/dL (13.5-17.5); Mean Corpuscular HGB 33.1 pg (26.0-34.0); Mean Corpuscular HGB Conc 33.3 g/dL (31.5-36.5); Mean Corpuscular Volume 99 fL (80-100); Mean Platelet Volume 10.9 fL (9.1-12.4); Platelet Count 54 K/mm3 (150-400); RDW Coefficient Variation 15.3 % (11.7-14.2); RDW Standard Deviation 55.7 fL (35.1-46.3); Red Blood Cell Count 3.17 M/mm3 (4.30-5.90); White Blood Cell Count 9.54 K/mm3 (4.00-11.30)
[2025-01-10 05:54] LABS: Albumin, Blood 1.9 g/dL (3.4-5.0); Albumin/Globulin Ratio 0.5 (0.8-1.8); Bilirubin, Total 2.9 mg/dL (0.1-1.0); Bun/Creatinine Ratio 9.6 (12.0-20.0); Calcium, Blood 6.9 mg/dL (8.5-10.1); Creatinine, Blood 0.83 mg/dL (0.60-1.20); Magnesium, Blood 1.3 mg/dL (1.6-2.4); Phosphorus, Blood 1.2 mg/dL (2.5-4.9); Potassium, Blood 3.1 mmol/L (3.5-5.5); Total Protein, Blood 5.9 g/dL (6.4-8.2)
[2025-01-10 05:59] LABS: BAND PERCENT MAN 9 % (0-8); BASOPHILS PERCENT MAN 0 % (0-2); EOSINOPHILS PERCENT MAN 0 % (0-6); LYMPHOCYTES ABSOLUTE MAN 1.33 K/mm3 (0.84-5.20); LYMPHOCYTES PERCENT MAN 14 % (21-46); MONOCYTES ABSOLUTE MAN 0.85 K/mm3 (0.16-1.47); MONOCYTES PERCENT MAN 9 % (4-13); NEUTROPHILS ABSOLUTE MAN 7.34 K/mm3 (1.96-9.15); SEG NEUTROPHILS PERCENT MAN 68 % (41-73); TOTAL CELLS COUNTED 100
[2025-01-10 07:10] VITALS: BP 144/83
--- NOTE | 2025-01-10 09:31 | NUR ---
NOTE: NOTIFIED BY BRAIDER SETTER, PT'S HR SUSTAINING 120-160. DR. AGUIRRE NOTIFIED AND NEW ORDERS WILL BE ADMINISTERED PER THE EMAR.
[2025-01-10] MEDS ORDERED: Metoprolol Tartrate 1 MG/ML 5 ML VIAL IV PRN (09:40)
[2025-01-10] MEDS ORDERED: Potassium Phosphate Dibasic 30 MM in Dextrose 5% 500 ML IV STA (09:58)
[2025-01-10] MEDS ORDERED: Magnesium Sulf 2 GM/Water 50ML 50 ML IV ONE (10:00)
[2025-01-10 11:05] VITALS: BP 120/76
--- NOTE | 2025-01-10 11:20 | NUR ---
NOTE: SPOKE WITH MIS, PHARMACIST, AND SHE SAID OKAY TO RUN MAG AND POTASSIUM IV WITH THE TPN THE PT CURRENTLY HAS INFUSING. DOSAGE CHANGED ON THE POTASSIUM TO MAKE THIS APPROPRIATE.
[2025-01-10 15:22] VITALS: BP 144/67
--- NOTE | 2025-01-10 17:59 | NUR ---
SHIFT SUMMARY PT AOX4, SEE NOTES ABOUT ELEVATED HR AND MEDICATIONS PER THE EMAR. SBA TO THE BR/BSC TO MAINTAIN LINES. TPN INFUSING. PT MEDICATED PER THE EMAR. CALLS TO MAKE HIS NEEDS KNOWN. CALL LIGHT WITHIN REACH, BED LOCKED AND IN THE LOWEST POSITION. WILL REPORT TO ONCOMING NURSE.
[2025-01-10 19:24] VITALS: BP 154/84
[2025-01-10 23:32] VITALS: BP 150/89
[2025-01-11 03:31] VITALS: BP 139/78
--- NOTE | 2025-01-11 03:34 | NUR ---
NUCLEAR FUEL ENRICHMENT TECHNICIAN SUMMARY VSS. ALERT AND ORIENTED. UP AD JEAN MARIE TO BEDSIDE COMMODE. IVF OF PPD INFUSING AT 104 ML/HR. MED TELE ST WITH PVC'S. CIWAS 0-2. AWAKE AT INTERVALS, VOICED ANGER AND FRUSTRATIONS RE CONT PULSE OX. HAS BEEN RESTING QUIETLY AT INTERVALS OTHERWISE. CALL LIGHT IN REACH, RAILS UP X 2 AND BED IN LOW POSITION FOR SAFETY. ABLE TO REPOSITION SELF IN BED FOR COMFORT. HOB ELEVATED FOR RESP COMFORT. WILL CONT TO MONITOR
[2025-01-11 05:53] LABS: Hematocrit 30.8 % (37.0-53.0); Hemoglobin 10.2 g/dL (13.5-17.5); Mean Corpuscular HGB 32.9 pg (26.0-34.0); Mean Corpuscular HGB Conc 33.1 g/dL (31.5-36.5); Mean Corpuscular Volume 99 fL (80-100); Mean Platelet Volume 11.1 fL (9.1-12.4); NRBC ABSOLUTE 0.02 K/mm3 (0.00-0.02); NRBC Auto 0.2 /100 WBC (0.0-0.2); Platelet Count 93 K/mm3 (150-400); RDW Coefficient Variation 14.8 % (11.7-14.2); RDW Standard Deviation 53.9 fL (35.1-46.3); White Blood Cell Count 8.55 K/mm3 (4.00-11.30)
[2025-01-11 06:13] LABS: Albumin, Blood 1.9 g/dL (3.4-5.0); Albumin/Globulin Ratio 0.5 (0.8-1.8); Bilirubin, Total 2.2 mg/dL (0.1-1.0); Bun/Creatinine Ratio 12.3 (12.0-20.0); Calcium, Blood 7.7 mg/dL (8.5-10.1); Creatinine, Blood 0.82 mg/dL (0.60-1.20); Globulin, Blood 3.9 g/dL (2.2-4.0); Magnesium, Blood 1.5 mg/dL (1.6-2.4); Phosphorus, Blood 1.7 mg/dL (2.5-4.9); Potassium, Blood 3.4 mmol/L (3.5-5.5); Total Protein, Blood 5.8 g/dL (6.4-8.2)
[2025-01-11 06:16] LABS: BAND PERCENT MAN 1 % (0-8); BASOPHILS PERCENT MAN 0 % (0-2); EOSINOPHILS ABSOLUTE MAN 0.08 K/mm3 (0.00-0.68); EOSINOPHILS PERCENT MAN 1 % (0-6); LYMPHOCYTES ABSOLUTE MAN 1.02 K/mm3 (0.84-5.20); LYMPHOCYTES PERCENT MAN 12 % (21-46); METAMYELOCYTE ABSOLUTE MAN 0.08 K/mm3 (0.00-0.00); METAMYELOCYTE PERCENT MAN 1 % (0-0); MONOCYTES ABSOLUTE MAN 1.19 K/mm3 (0.16-1.47); MONOCYTES PERCENT MAN 14 % (4-13); NEUTROPHILS ABSOLUTE MAN 6.15 K/mm3 (1.96-9.15); SEG NEUTROPHILS PERCENT MAN 71 % (41-73); TOTAL CELLS COUNTED 100
[2025-01-11 07:35] VITALS: BP 142/77
[2025-01-11] MEDS ORDERED: Potassium Phosphate Dibasic 30 MM in Dextrose 5% 500 ML IV STA (09:31)
[2025-01-11] MEDS ORDERED: Mag Sulfate 1 GM/D5% 100ML 100 ML IV STA (09:31)
[2025-01-11 12:19] VITALS: BP 147/83
[2025-01-11 16:02] VITALS: BP 144/84
--- NOTE | 2025-01-11 18:30 | NUR ---
SHIFT SUMMARY PATIENT ALERT AND INTERACTIVE. PATIENT EASILY IRRITABLE AND YELLING AT PEOPLE ON THE PHONE. HR ELEVATED WHEN IRRITABLE OR ATTEMPTING TO DO THINGS OOB WITHOUT ASSISTANCE. PATIENT STATING THAT HE HAS GONE THROUGH WITHDRAWLS BEFORE BUT HAVENT LASTED THIS LONG. PATIENT ALSO STATES THAT HE USUALLY DRINKS AGAIN AFTER 4-5 DAYS AND THE SYMPTOMS STOP. ATTEMPTED TO PROVIDE EDUCATION. PT WOULD INTERUPT NURSE AND JUSTIFY WHY THINGS HAPPENED TO HIM. PATIENT REQUESTING DILAUDID TO TOLERATE DINNER. PATIENT EDUCATED ON HOW PAIN MEDICATIONS PRIOR TO EATING IS NOT GOING TO HELP HIS SITUATION. PATIENT MEDICATED WITH ZOFRAN FOR NAUSEA. AGAIN TRIED TO EDUCATE PATIENT REGARDING PANCREATITIS AND MEDICATIONS BUT PATIENT WOULD INTERUPT STAFF AND MAKE COMMENTS. PATIENT CONTINUES TO REQUEST RX FOR ATIVAN AT HOME. PATIENT HAS NOT RECIEVED ANY ATIVAN FOR DAYS. PATIENT STATES THAT HE WANTS IT SO HE WON'T DRINK AT HOME. CONTINUE TO TRY TO EDUCATE PATIENT. PATIENT NOT WANTING TO LISTEN TO EDUCATION.
[2025-01-11 19:32] VITALS: BP 153/92
[2025-01-11] MEDS ORDERED: Acetaminophen 500 MG Tab PO PRN (20:35)
[2025-01-11] MEDS ORDERED: NS 250 ML IV PRN (20:45)
[2025-01-11] MEDS ORDERED: Metoprolol Tartrate 50 MG Tab PO SCH (21:00)
[2025-01-11 23:13] VITALS: BP 131/93
[2025-01-12] MEDS ORDERED: TraZODone HCl 50 MG Tab PO PRN (02:30)
[2025-01-12 03:24] VITALS: BP 137/67
--- NOTE | 2025-01-12 05:27 | NUR ---
SHIFT SUMMARY NOC PT A/O X 4. ANXIOUS BUT COOPERATIVE WITH CARE. VSS. PT HAD C/O OF INSOMNIA AND THAT MELATONIN NOT HELPING PT SLEEP. HOPSITALIST NOTIFIED AND TRAZAODONE ORDERED FOR BEDTIME PRN. PT ON TELE SINUS TACH IN 110'S AND AT TIMES TOUCHING 160'S BRIEFLY, USUALLY WHEN PT AGITATED ON PHONE CALL OR WHEN AMBULATING TO BSC. POWERGLIDE WALDEMAR DOES NOT DRAW. CIWA <8. PT CURRENTLY RESTING WITH BED IN LOWEST POSITION, AND CALL LIGHT WITHIN REACH.
[2025-01-12 05:31] LABS: BASOPHILS ABSOLUTE AUTO 0.05 K/mm3 (0.00-0.23); BASOPHILS PERCENT AUTO 0 % (0-2); Hematocrit 29.8 % (37.0-53.0); Hemoglobin 10.1 g/dL (13.5-17.5); Mean Corpuscular HGB 33.4 pg (26.0-34.0); Mean Corpuscular HGB Conc 33.9 g/dL (31.5-36.5); Mean Corpuscular Volume 99 fL (80-100); Mean Platelet Volume 11.4 fL (9.1-12.4); NRBC ABSOLUTE 0.03 K/mm3 (0.00-0.02); NRBC Auto 0.2 /100 WBC (0.0-0.2); Platelet Count 145 K/mm3 (150-400); RDW Coefficient Variation 14.9 % (11.7-14.2); RDW Standard Deviation 53.8 fL (35.1-46.3); Red Blood Cell Count 3.02 M/mm3 (4.30-5.90); White Blood Cell Count 12.48 K/mm3 (4.00-11.30)
[2025-01-12 05:32] LABS: EOSINOPHILS ABSOLUTE AUTO 0.01 K/mm3 (0.00-0.68); EOSINOPHILS PERCENT AUTO 0 % (0-6); IMMATURE GRAN ABSOLUTE AUTO 0.34 K/mm3 (0.00-0.10); IMMATURE GRAN PERCENT AUTO 3 % (0-1); LYMPHOCYTES ABSOLUTE AUTO 0.55 K/mm3 (0.84-5.20); LYMPHOCYTES PERCENT AUTO 4 % (21-46); MONOCYTES ABSOLUTE AUTO 1.39 K/mm3 (0.16-1.47); MONOCYTES PERCENT AUTO 11 % (4-13); NEUTROPHILS ABSOLUTE AUTO 10.14 K/mm3 (1.96-9.15); NEUTROPHILS PERCENT AUTO 81 % (41-73)
[2025-01-12 05:56] LABS: Magnesium, Blood 1.2 mg/dL (1.6-2.4)
[2025-01-12 05:57] LABS: Albumin, Blood 1.8 g/dL (3.4-5.0); Albumin/Globulin Ratio 0.4 (0.8-1.8); Bilirubin, Total 1.6 mg/dL (0.1-1.0); Bun/Creatinine Ratio 8.9 (12.0-20.0); Creatinine, Blood 1.01 mg/dL (0.60-1.20); Globulin, Blood 4.2 g/dL (2.2-4.0); Potassium, Blood 4.1 mmol/L (3.5-5.5)
[2025-01-12 06:15] LABS: BAND PERCENT MAN 2 % (0-8); BASOPHILS PERCENT MAN 0 % (0-2); EOSINOPHILS PERCENT MAN 0 % (0-6); LYMPHOCYTES ABSOLUTE MAN 0.37 K/mm3 (0.84-5.20); LYMPHOCYTES PERCENT MAN 3 % (21-46); MONOCYTES ABSOLUTE MAN 1.37 K/mm3 (0.16-1.47); MONOCYTES PERCENT MAN 11 % (4-13); PLASMA CELL ABSOLUTE MAN 0.12 K/mm3 (0.00-0.00); PLASMA CELLS PERCENT MAN 1 % (0-0); SEG NEUTROPHILS PERCENT MAN 83 % (41-73); TOTAL CELLS COUNTED 100
--- NOTE | 2025-01-12 06:42 | NUR ---
PT MAGNESIUM 1.2. HOSPITALIST NOTIFIED AND 2G MAG SULFATE ORDERED.
[2025-01-12] MEDS ORDERED: Magnesium Sulf 2 GM/Water 50ML 50 ML IV ONE (06:45)
[2025-01-12 07:13] VITALS: BP 112/66
[2025-01-12] MEDS ORDERED: Mag Sulfate 1 GM/D5% 100ML 100 ML IV STA (09:51)
[2025-01-12 11:08] VITALS: BP 137/74
[2025-01-12 15:51] VITALS: BP 119/71
--- NOTE | 2025-01-12 18:06 | NUR ---
SHIFT SUMMARY PT A&OX4. PT ADMITTED DUE TO ACUTE PANCREATITIS. PT ANXIOUS ABOUT NOT GETTING ENOUGH SLEEP. PT HAD MAGNESIUM REPLENISHED DURING SHIFT. PT CONT. OF URINE AND BM AND USES BSC. PT IS A SBA. PT LAST CIWA WAS A 3 DUE TO MINIMAL TREMOR, SOME AGITATION, AND MILD HEADACHE. PT REFUSED BREAKFAST AND LUNCH DUE TO ABD PAIN. PT REPORTS NO NAUSEA AND VOMMITING. PT ON TELE. POWERGLIDE WALDEMAR DOES NOT DRAW. PT BED IN LOWEST POSITION, CALLS APPROPRIATE, CALL LIGHT IN REACH.
[2025-01-12 19:46] VITALS: BP 138/58
[2025-01-13 00:18] VITALS: BP 136/65
[2025-01-13 05:23] LABS: BASOPHILS ABSOLUTE AUTO 0.04 K/mm3 (0.00-0.23); BASOPHILS PERCENT AUTO 0 % (0-2); EOSINOPHILS ABSOLUTE AUTO 0.09 K/mm3 (0.00-0.68); EOSINOPHILS PERCENT AUTO 1 % (0-6); Hematocrit 27.9 % (37.0-53.0); Hemoglobin 9.4 g/dL (13.5-17.5); Mean Corpuscular HGB 33.1 pg (26.0-34.0); Mean Corpuscular HGB Conc 33.7 g/dL (31.5-36.5); Mean Corpuscular Volume 98 fL (80-100); Mean Platelet Volume 11.2 fL (9.1-12.4); Platelet Count 161 K/mm3 (150-400); RDW Coefficient Variation 14.8 % (11.7-14.2); RDW Standard Deviation 53.7 fL (35.1-46.3); Red Blood Cell Count 2.84 M/mm3 (4.30-5.90); White Blood Cell Count 9.53 K/mm3 (4.00-11.30)
--- NOTE | 2025-01-13 05:35 | NUR ---
SHIFT SUMMARY NOC PT A/O X 4. PLEASANT AND COOPERATIVE WITH CARE. VSS. HR IMPROVED PT ONT TELE SINUS IN 80'S-90'S, BUT STILL TACHY IN 140'S WITH EXERTION. PT HAD C/O OF R ABD PAIN AND MEDICATED PER EMAR. PT REQUESTED O2 FOR SLEEP AND ON 3L/NC SPO2 >92%. POWERGLIDE IN WALDEMAR. PT MG 1.2 YESTERDAY AND RECEIVED REPLACEMENT, AWAITING AM LABS FOR IMPROVEMENT. PT CURRENTLY RESTING WITH BED IN LOWEST POSITION, AND CALL LIGHT WITHIN REACH.
[2025-01-13 05:36] LABS: IMMATURE GRAN ABSOLUTE AUTO 0.17 K/mm3 (0.00-0.10); IMMATURE GRAN PERCENT AUTO 2 % (0-1); LYMPHOCYTES ABSOLUTE AUTO 0.81 K/mm3 (0.84-5.20); LYMPHOCYTES PERCENT AUTO 9 % (21-46); MONOCYTES ABSOLUTE AUTO 1.25 K/mm3 (0.16-1.47); MONOCYTES PERCENT AUTO 13 % (4-13); NEUTROPHILS ABSOLUTE AUTO 7.17 K/mm3 (1.96-9.15); NEUTROPHILS PERCENT AUTO 75 % (41-73)
[2025-01-13 05:48] LABS: Magnesium, Blood 1.8 mg/dL (1.6-2.4)
[2025-01-13 05:49] LABS: Albumin, Blood 1.8 g/dL (3.4-5.0); Albumin/Globulin Ratio 0.4 (0.8-1.8); Bilirubin, Total 0.8 mg/dL (0.1-1.0); Bun/Creatinine Ratio 11.4 (12.0-20.0); Calcium, Blood 8.2 mg/dL (8.5-10.1); Creatinine, Blood 0.96 mg/dL (0.60-1.20); Globulin, Blood 4.2 g/dL (2.2-4.0); Phosphorus, Blood 3.2 mg/dL (2.5-4.9); Potassium, Blood 3.9 mmol/L (3.5-5.5)
[2025-01-13 05:53] LABS: BAND PERCENT MAN 2 % (0-8); BASOPHILS PERCENT MAN 0 % (0-2); EOSINOPHILS PERCENT MAN 0 % (0-6); LYMPHOCYTES ABSOLUTE MAN 0.57 K/mm3 (0.84-5.20); LYMPHOCYTES PERCENT MAN 6 % (21-46); METAMYELOCYTE ABSOLUTE MAN 0.09 K/mm3 (0.00-0.00); METAMYELOCYTE PERCENT MAN 1 % (0-0); MONOCYTES ABSOLUTE MAN 1.42 K/mm3 (0.16-1.47); MONOCYTES PERCENT MAN 15 % (4-13); NEUTROPHILS ABSOLUTE MAN 7.43 K/mm3 (1.96-9.15); SEG NEUTROPHILS PERCENT MAN 76 % (41-73); TOTAL CELLS COUNTED 100
[2025-01-13 07:57] VITALS: BP 99/62
[2025-01-13 11:33] VITALS: BP 111/57
[2025-01-13] MEDS ORDERED: GEMF600 PO (12:29)
[2025-01-13] MEDS ORDERED: MELATONIN5 M1 PO (12:30)
--- NOTE | 2025-01-13 15:00 | NUR ---
PT AWAKE DURING SHIFT REPORT. A&O, PLEASANT AND CO-OP. UP INDEPENDENTLY IN RM AND TO BTHRM. HR HAS BEEN STABLE ON NEW MEDICATION. SR IN 80'S ON TELE. PT ON RA. UP TO SHOWER THIS AM. DR AGUIRRE GAVE VERBAL FOR PT TO BE OFF TELE FOR SHOWER. DR AGUIRRE LATER IN TO SEE PT AND DISCUSS PLAN OF CARE. PT WANTING TO GO HOME. D/C ORDERS PLACED. MEDS FAXED TO [facility], PER PT REQUEST. PT ALSO ENCOURAGED TO NOT GO BACK TO DRINKING. PT ADMITTED FOR PANCREATITIS R/T ALCOHOL. PT CALLED FAMILY FOR RIDE. D/C INSTRUCTIONS REVIEWED WITH PT; VERBALIZED UNDERSTANDING. F/U APPOINTMENTS DISCUSSED. ALL BELONGINGS TAKEN BY PT. PT ASSISTED OUT VIA W/C BY KALEB.
== END 2025-01-13 14:51 | disposition home or self-care (01) | DRG 439 ==
LOC: ER 18:16 → MEDS 23:44 → ICUE 01-06 10:17 → MEDS 01-07 15:22 → ENPENDDIS 01-13 12:49 → MEDS 01-13 14:51
PROVIDERS: Emergency Medicine; Family Medicine; Internal Medicine; ADMIT Internal Medicine
DX: K85.20 Alcohol induced acute pancreatitis without necrosis or infection (principal); E87.1 Hypo-osmolality and hyponatremia; Z68.41 Body mass index [BMI] 40.0-44.9, adult; E66.01 Morbid (severe) obesity due to excess calories; I10 Essential (primary) hypertension; E78.00 Pure hypercholesterolemia, unspecified; Z96.652 Presence of left artificial knee joint; K80.20 Calculus of gallbladder without cholecystitis without obstruction; D69.6 Thrombocytopenia, unspecified; G47.33 Obstructive sleep apnea (adult) (pediatric); E78.5 Hyperlipidemia, unspecified; E87.6 Hypokalemia; E83.42 Hypomagnesemia; E83.39 Other disorders of phosphorus metabolism; F10.10 Alcohol abuse, uncomplicated; R00.0 Tachycardia, unspecified; E78.1 Pure hyperglyceridemia; Z98.84 Bariatric surgery status; Z79.899 Other long term (current) drug therapy; Z90.49 Acquired absence of other specified parts of digestive tract; Z98.42 Cataract extraction status, left eye; Z98.41 Cataract extraction status, right eye
CPT/HCPCS: 36415; 74177; 80048; 80053; 80061; 81001; 82330; 82947; 83690; 83735; 83880; 84100; 84478; 85025; 93005; 93010; 93306; 94760; 94762; 96361; 96374-59; 96375; 96376; 99285-25; A9270; C1751; J0612; J1171; J1650; J1815; J2060; J2270; J2405; J3010; J3411; J3475; J3480; J7030; J7040; J7050; J7060; J7070; Q9967